=== PATIENT | female | born 1995 | race African-American/Black ===

== ENCOUNTER 2017-05-23 21:22 | Emergency (ER) | payer MEDICAID ==
[~2017-05-23] VITALS: Ht 170.2 cm; Wt 59.0 kg
[2017-05-24 01:06] LABS: BASOPHILS % 0.9 % (0.0-2.0); EOSINOPHILS % 1.8 % (0.0-5.0); HEMATOCRIT. 34.8 % (36.0-48.0); HEMOGLOBIN. 11.4 g/dL (12.0-16.0); MEAN CORPUSCULAR HEMOGLOBIN 27.1 pg (28.0-32.0); MEAN CORPUSCULAR VOLUME 82.5 fL (81.0-99.0); MEAN PLATELET VOLUME 8.5 fl (7.4-10.4); MONOCYTES % 10.8 % (2.0-8.0); NEUTROPHILS % 56.5 % (40.0-76.0); PLATELET 248 x1000/uL (130-400); RED BLOOD CELL COUNT 4.21 mill/uL (4.2-5.4); RED CELL DISTRIBUTION WIDTH 14.6 % (11.6-14.6)
[2017-05-24 01:08] LABS: CHLORIDE 106 mEq/L (98-107)
[2017-05-24 01:18] LABS: CLARITY URINE CLEAR (CLEAR); COLOR URINE YELLOW (YELLOW); KETONES URINE NEGATIVE (NEGATIVE); LEUKOCYTE ESTERASE URINE NEGATIVE (NEGATIVE); NITRITE URINE NEGATIVE (NEGATIVE); OCCULT BLOOD URINE NEGATIVE (NEGATIVE); PH URINE 5.5 (4.5-8.0); PROTEIN URINE NEGATIVE (NEGATIVE); SPECIFIC GRAVITY URINE 1.015 (1.005-1.030); UROBILINOGEN URINE 0.2 E.U./dL (0.2-1.0)
[2017-05-24 01:33] LABS: B-HCG QUANTITATIVE 65623 mIU/mL (<3)
[2017-05-24 05:36] VITALS: BP 125/69
== END 2017-05-24 05:40 | disposition home or self-care (01) ==
LOC: ER 21:22
DX: O20.0 Threatened abortion (principal); O21.9 Vomiting of pregnancy, unspecified; Z3A.09 9 weeks gestation of pregnancy
CPT/HCPCS: 36415; 76801; 80053; 81003; 81025; 84702; 85025; 86850; 86900; 99285